=== PATIENT | male | born 1980 | race Caucasian/White ===

== ENCOUNTER 2017-07-01 10:34 | Emergency (ER) | payer BC ==
[~2017-07-01] VITALS: Ht 177.8 cm; Wt 130.7 kg
[2017-07-01 10:55] VITALS: BP 149/110
--- NOTE | 2017-07-01 10:59 | NUR ---
PATIENT AMBULATED TO ER BED 5.
--- NOTE | 2017-07-01 11:06 | NUR ---
PATIENT PRESENTS TO ED WITH C/O LOWER ABDOMINAL PAIN X THIS AM WITH > 1O EPISODES OF EMESIS AND WATERY STOOLS;SKIN IS PINK/WARM/DRY; AAOX4 WITH EVEN AND STEADY GAIT; LUNGS CLEAR BL; HR EVEN AND REGULAR; PT DENIES ANY FEVER, CP, SOB, OR COUGH AT THIS TIME; PATIENT STATES PAIN OF 9/10 AT THIS TIME;PATIENT POSITIONED FOR COMFORT; HOB ELEVATED; BEDRAILS UP X2; BED DOWN. ALL MONITORS IN PALCED;ER MD MADE AWARE OF PT STATUS.
--- NOTE | 2017-07-01 11:10 | NUR ---
PATIENT BEING EVALUATED BY DR. SUMNER.
[2017-07-01] MEDS ORDERED: NACL 0.9% 2,000 ML IV ONE (11:25)
[2017-07-01] MEDS ORDERED: ONDANSETRON 4 MG/2 ML VIAL IVP ONE (11:25)
[2017-07-01] MEDS ORDERED: DIPHENOXYLATE /ATROPINE 2.5 MG TAB PO ONE (11:25)
[2017-07-01 11:58] LABS: HEMOGLOBIN 14.9 g/dL (12.0-18.0); MEAN CORPUSCULAR HEMOGLOBIN 26 pg (27-31); MEAN CORPUSCULAR HGB CONC 32 g/dL (33-37); MEAN CORPUSCULAR VOLUME 82 fL (80-94); PLATELET COUNT (AUTO) 313 K/uL (140-450); RED CELL DISTRIBUTION WIDTH 12.8 % (11.6-13.7); WHITE BLOOD COUNT (AUTO) 16.6 K/uL (4.8-10.8)
[2017-07-01 12:09] LABS: ALBUMIN 4.1 g/dL (3.4-5.0); ANION GAP 14.3 (8-16); CARBON DIOXIDE 24.8 mmol/L (21-32); CREATININE 1.1 mg/dL (0.7-1.3); POTASSIUM 4.1 mmol/L (3.5-5.1); TOTAL BILIRUBIN 0.6 mg/dL (0.0-1.0)
[2017-07-01 12:15] LABS: BASOPHILS % (MANUAL) 1 % (0-2); EOSINOPHILS % (MANUAL) 1 % (0-4); LYMPHOCYTES % (MANUAL) 8 % (20-46); MONOCYTES % (MANUAL) 6 % (5-12)
[2017-07-01] MEDS ORDERED: MORPHINE SULFATE 4 MG/ML SYR IVP ONE (12:20)
--- NOTE | 2017-07-01 12:34 | NUR ---
PT VERBALIZES DECREASED OF PAIN FROM 9/10 TO 7/10;NO FACIAL GRIMMACING AND MOANING NOTED;WILL CONTINUE TO MONITOR PT.
[2017-07-01 13:46] VITALS: BP 112/87
--- NOTE | 2017-07-01 13:46 | NUR ---
Patient discharged with v/s stable. Written and verbal after care instructions given and explained. Patient alert, oriented and verbalized understanding of instructions. Ambulatory with steady gait. All questions addressed prior to discharge. ID band removed. Patient advised to follow up with PMD. Rx of NORCO,LOMOTIL AND ZOFRAN given. Patient educated on indication of medication including possible reaction and side effects. Opportunity to ask questions provided and answered.
== END 2017-07-01 13:46 | disposition home or self-care (01) ==
LOC: MED 10:34
DX: R11.10 Vomiting, unspecified (principal); R19.7 Diarrhea, unspecified; R10.9 Unspecified abdominal pain; R03.0 Elevated blood-pressure reading, without diagnosis of hypertension
CPT/HCPCS: 36415; 80053; 83690; 85025; 96361; 96374; 96375; 99285; J2270; J2405

== ENCOUNTER 2023-02-08 16:12 | Emergency (ER) | payer BC ==
[~2023-02-08] VITALS: Ht 175.3 cm; Wt 136.1 kg
[2023-02-08 16:55] VITALS: BP 162/92
[2023-02-08] MEDS: LIDOCAINE MPF 1% 10 MG/ML VIAL INJ ONE (18:01)
[2023-02-08] MEDS: BACITRACIN OINT 500 UNITS/GM PKT TP ONE (18:02)
[2023-02-08] MEDS ORDERED: BACI-416 TP (18:14)
== END 2023-02-08 18:25 | disposition home or self-care (01) ==
LOC: MED 16:12
DX: S61.412A Laceration without foreign body of left hand, initial encounter (principal); Z79.2 Long term (current) use of antibiotics; W45.8XXA Other foreign body or object entering through skin, initial encounter; Y93.89 Activity, other specified; Y92.89 Other specified places as the place of occurrence of the external cause; Y99.8 Other external cause status
CPT/HCPCS: 12002; 90471; 90715; 99283; J2001

== ENCOUNTER 2023-02-10 15:29 | Emergency (ER) | payer BC ==
[~2023-02-10] VITALS: Ht 172.7 cm; Wt 90.7 kg
[~2023-02-10 15:29] MED LIST: BACI-416 TP
[2023-02-10 15:42] VITALS: BP 136/90
--- NOTE | 2023-02-10 18:25 | NUR ---
PATIENT LEFT WITHOUT DISCHARGE PAPERWORK
== END 2023-02-10 18:24 | disposition home or self-care (01) ==
LOC: MED 15:29
DX: Z48.01 Encounter for change or removal of surgical wound dressing (principal); R03.0 Elevated blood-pressure reading, without diagnosis of hypertension; Z79.2 Long term (current) use of antibiotics
CPT/HCPCS: 99281

== ENCOUNTER 2023-02-15 15:33 | Emergency (ER) | payer BC ==
[~2023-02-15] VITALS: Ht 175.3 cm; Wt 145.1 kg
--- NOTE | 2023-02-15 15:42 | NUR ---
SUTURE REMOVAL KIT AT PT TABLE [place]
[2023-02-15 15:43] VITALS: BP 151/107
[2023-02-15] MEDS ORDERED: BACITRACIN OINT 500 UNITS/GM PKT TP ONE ×2 (16:19→16:20)
[2023-02-15 16:32] VITALS: BP 151/107
--- NOTE | 2023-02-15 16:32 | NUR ---
Patient discharged with v/s stable. Written and verbal after care instructions given and explained. Patient verbalized understanding. Ambulatory with steady gait. All questions addressed prior to discharge. Advised to follow up with PMD.
== END 2023-02-15 16:32 | disposition home or self-care (01) ==
LOC: MED 15:33
DX: S61.411D Laceration without foreign body of right hand, subsequent encounter (principal); Z48.02 Encounter for removal of sutures; Z79.2 Long term (current) use of antibiotics; X58.XXXD Exposure to other specified factors, subsequent encounter
CPT/HCPCS: 99282